=== PATIENT | female | born 1945 | race Two or more races ===

== ENCOUNTER 2019-02-15 08:06 | Day surgery (SDC) | payer OTHER ==
[2019-02-15] VITALS (8 sets, daily range): BP systolic 122–140; BP diastolic 64–76; PULSE 80–93; RESP 15–24; Ht 144.8 cm; Wt 52.9 kg
[~2019-02-15] VITALS: Ht 144.8 cm; Wt 52.9 kg
[~2019-02-15 08:06] MED LIST: ATOR20TA65 ORAL; CYCLOPENTOLATE 1% 2 ML OPH RIGHT EYE SCH; DICLOFENAC 0.1% 2.5 ML OPH RIGHT EYE SCH; FAMO20TA18 ORAL; LEVO50TA7 ORAL; LISI-313 PO; METF100010 ORAL; MOXIFLOXACIN 0.5% 3 ML OPH RIGHT EYE SCH; PHENYLephrine 2.5% 15 ML OPH RIGHT EYE SCH; SOD CHLORIDE 0.9% 1,000 ML IV SCH; TROPICAMIDE 1% 15 ML OPH RIGHT EYE SCH
[2019-02-15] MEDS ORDERED: OXYCODONE/ACETAMINOPHEN (5/325) TAB PO PRN ×2 (09:00)
[2019-02-15] MEDS ORDERED: ONDANSETRON 4 MG INJ IV PRN (09:00)
[2019-02-15] MEDS ORDERED: ACETAMINOPHEN 500 MG TAB PO PRN (09:00)
[2019-02-15] MEDS ORDERED: FENTAnyl 50 MCG/ML VIAL IV PRN ×3 (09:00)
[2019-02-15] MEDS ORDERED: LABETALOL HCL 20MG INJ IV PRN (09:00)
[2019-02-15] MEDS ORDERED: hydrALAzine 20 MG INJ IV PRN (09:00)
[2019-02-15] MEDS ORDERED: MIDAZOLAM 1 MG/ML 2 ML INJ ONE (09:11)
[2019-02-15] MEDS ORDERED: FENTAnyl 50 MCG/ML VIAL ONE (09:18)
[2019-02-15] MEDS ORDERED: LIDOCAINE 1% (MPF) 10 ML INJ ONE (09:25)
== END 2019-02-15 11:14 | disposition home or self-care (01) ==
LOC: SDS 08:06
PROVIDERS: ATTEND Ophthalmology
DX: H25.041 Posterior subcapsular polar age-related cataract, right eye (principal); I10 Essential (primary) hypertension; E78.5 Hyperlipidemia, unspecified
CPT/HCPCS: 66984; 82962; J2250; J3010; V2632; Z7512; Z7610